=== PATIENT | male | born 2000 | race Hispanic/Latino ===

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

== ENCOUNTER 2018-07-13 19:36 | Emergency (ER) | payer OTHER, SELFPAY ==
[2018-07-13] MEDS ORDERED: Adacel (T-DAP) 0.5 ML SYRINGE ONE (20:27)
[2018-07-13] MEDS ORDERED: Lidocaine 1% w/Epinephrine 1:100K 20 ML VIAL ONE (20:34)
[2018-07-13] MEDS ORDERED: Bacitracin Zinc 1 Packet ONE (21:04)
--- NOTE | 2018-07-13 21:27 | RAD ---
RIGHT FOREARM TWO VIEWS: History: Injury. FINDINGS: No evidence of fracture. No osseous abnormality. IMPRESSION: No acute finding. POS: [facility]
== END 2018-07-13 21:33 | disposition home or self-care (01) ==
LOC: ERS 19:36
DX: S51.811A Laceration without foreign body of right forearm, initial encounter (principal); W26.8XXA Contact with other sharp object(s), not elsewhere classified, initial encounter
CPT/HCPCS: 12001; 90471; 90715; J2001

== ENCOUNTER 2022-01-31 23:08 | Emergency (ER) | payer SELFPAY | END 2022-02-01 00:28 | disposition home or self-care (01) | LOC: ERS 23:08 | DX: H65.91 Unspecified nonsuppurative otitis media, right ear (principal) | CPT/HCPCS: 99282 ==